=== PATIENT | female | born 1975 ===

== ENCOUNTER 2017-11-28 22:15 | Emergency (ER) | payer SELFPAY ==
[2017-11-28 23:01] LABS: Basophils % (Auto) 0.1 % (0.0-1.8); Eosinophils # (Auto) 0.3 K/mm3 (0.0-0.4); Eosinophils % (Auto) 3.4 % (0.0-4.3); Hematocrit 34.4 % (30.3-42.9); Hemoglobin 10.9 gm/dl (10.1-14.3); Lymphocytes # (Auto) 2.2 K/mm3 (1.2-5.4); Lymphocytes % (Auto) 26.1 % (13.4-35.0); Mean Corpuscular HGB Conc 32 % (30-34); Mean Corpuscular Hemoglobin 25 pg (28-32); Mean Corpuscular Volume 79 fl (79-97); Monocytes # (Auto) 0.5 K/mm3 (0.0-0.8); Platelet Count 420 K/mm3 (140-440); Red Blood Count 4.34 M/mm3 (3.65-5.03); Red Cell Distribution Width 17.1 % (13.2-15.2)
[2017-11-28 23:15] LABS: Alanine Aminotransferase 12 units/L (7-56); BUN/Creatinine Ratio 16; Blood Urea Nitrogen 14 mg/dL (7-17); Calcium 8.6 mg/dL (8.4-10.2); Hemolysis Index 10
[2017-11-28 23:30] LABS: Bilirubin,Urine NEG (Negative); Blood,Urine NEG (Negative); Color,Urine Yellow (Yellow); Mucus,Urine FEW /HPF; Protein,Urine <15 mg/dL mg/dL (Negative)
[2017-11-29 00:21] VITALS: BP 168/88
[2017-11-29 00:49] LABS: HCG Qualitative,Urine Negative (Negative)
[2017-11-29] MEDS ORDERED: ZOFRAN IV ONE (01:06)
[2017-11-29] MEDS ORDERED: MORPHINE IV ONE (01:06)
[2017-11-29] MEDS ORDERED: LEVAQUIN 500MG/100ML 500 MG/100 ML BAG IV ONE (01:07)
[2017-11-29] MEDS ORDERED: LEVAQUIN PO ONE (02:15)
[2017-11-29] MEDS ORDERED: ULTRAM PO ONE (02:15)
--- NOTE | 2017-11-29 02:33 | Emergency Department Report ---
HPI - General Chief Complaint: Abdominal Pain Time Seen by Provider: 11/29/17 00:21 - HPI HPI: The patient is a 42-year-old female presents with hours of abdominal pain. The patient reports abdominal pain for the past 1.5 weeks, constant, progressive, currently moderate in severity, sharp in quality, and associated with dysuria and increased urinary frequency. The patient denies fever, chills, night sweats , trauma to the abdomen or pelvis, diarrhea, blood in the stool, dark tarry stool, hematuria, flank pain, genital discharge, vaginal bleeding, inability to pass flatus. ED Past Medical Hx - Past Medical History Previous Medical History?: Yes Hx Hypertension: Yes Additional medical history: endometriosis - Surgical History Past Surgical History?: Yes Additional Surgical History: tubaligation; ; 2 lumpectomy in rt breast - Social History Smoking Status: Never Smoker Substance Use Type: None - Medications Home Medications: Home Medications Medication Instructions Recorded Confirmed Last Taken Type Ciprofloxacin HCl [Ciprofloxacin 500 mg PO Q12H #20 tab 11/29/17 Unknown Rx TAB] ED Review of Systems ROS: Stated complaint: ABD PAIN Other details as noted in HPI Constitutional: denies: fever ENT: denies: throat or neck pain Respiratory: denies: cough, shortness of breath Cardiovascular: denies: chest pain Endocrine: denies unexplained weight loss or gain Gastrointestinal: reports: abdominal pain, nausea Genitourinary: reports dysuria Musculoskeletal: denies: leg swelling Skin: denies: rash Neurological: denies: headache Hematological/Lymphatic: denies: easy bleeding or easy bruising Psych: denies sadness or hopelessness Physical Exam - Physical Exam Vital Signs: Vital Signs 11/28/17 11/29/17 22:40 00:19 Temperature 98.2 F Pulse Rate 76 85 Respiratory 20 Rate Blood Pressure 140/89 Blood Pressure 168/88 [Left] O2 Sat by Pulse 100 98 Oximetry Physical Exam: General: well-nourished, well-developed, no acute distress Head: Normocephalic, atraumatic Eyes: normal sclera ENT: Mucous membranes are pink and moist Neck: trachea midline, neck supple, No neck stiffness, no cervical adenopathy Respiratory: Breath sounds equal bilaterally, no wheezing, rales, or rhonchi Cardio: S1 and S2 present, no murmurs, rubs, gallops, capillary refill is brisk Abdomen: Normoactive bowel sounds, soft abdomen, right lower quadrant tenderness to palpation present, no rigidity, no guarding or rebound tenderness Chest WALL/Back: No tenderness to palpation of the chest wall, no CVA tenderness with percussion Musc: No pitting edema Skin: No rash Neuro: alert and oriented x3, no facial drooping, normal speech Psych: Normal affect ED Course Vital Signs 11/28/17 11/29/17 22:40 00:19 Temperature 98.2 F Pulse Rate 76 85 Respiratory 20 Rate Blood Pressure 140/89 Blood Pressure 168/88 [Left] O2 Sat by Pulse 100 98 Oximetry ED Medical Decision Making - Lab Data Result diagrams: 11/28/17 22:53 11/28/17 22:53 - Medical Decision Making The patient was seen and examined by myself. The patient is placed on a electronic equipment installer and continuous pulse ox. On initial evaluation, the patient was found to be in no distress. Evaluation orders are placed. The patient given pain medicine. Lab results revealed elevated urinalysis WBC with positive leukocyte esterase, consistent with acute urinary tract infection, and otherwise labs were non- concerning including serum WBC, hemoglobin, hematocrit, electrolytes, renal function, LFTs, and negative preg test. The patient is given a tablet of Keflex for treatment of her urinary tract infection. As the patient was found to have right lower quadrant abdominal pain, CT of the abdomen with IV contrast was ordered. The patient refused the CAT scan. She was informed of concern for potential appendicitis. The patient is informed of risks of refusal of further care/ stabilization and signing out AGAINST MEDICAL ADVICE, including potential risk of increased morbidity and/or , versus benefits of further treatment and stablization. The patient is informed of treatment options and outside facility options for futher treatment and definitive stablization. The patient is able to verbalize their treatment options and benefits of treatments, versus risks of refusal of further care. The patient is competent to make medical decisions and signed out AGAINST MEDICAL ADVICE. Critical care attestation.: If time is entered above; I have spent that time in minutes in the direct care of this critically ill patient, excluding procedure time. ED Disposition Clinical Impression: Acute lower UTI (urinary tract infection), Acute abdominal pain in right lower quadrant Disposition: LEFT AGAINST MED ADVICE Is pt being admited?: No Condition: Undetermined Instructions: Abdominal Pain (ED), Urinary Tract Infection in Women (ED) Referrals: GEORGIANA RUBIO MD [Primary Care Provider] - 3-5 Days Time of Disposition: 02:16
[2017-11-29] MEDS ORDERED: NACL ONE (02:49)
== END 2017-11-29 02:41 | disposition left against medical advice (07) ==
LOC: ED 22:15
DX: N39.0 Urinary tract infection, site not specified (principal); I10 Essential (primary) hypertension
CPT/HCPCS: 36415; 80053; 81001; 81025; 85025; 99283; J1956; J2270; J2405